=== PATIENT | female | born 1950 | race Hispanic/Latino ===

== ENCOUNTER → 2024-03-02 | Day surgery (SDC) | payer MEDICARE, OTHER ==
[~2024-03-02] MED LIST: ACETAMINOPHEN 1000 MG/100 ML 100 ML IV ONE; ACETAMINOPHEN 1000 MG/100 ML IV PRN; ACETAMINOPHEN PO; ACETAMINOPHEN325 M1 PO; ASPIRIN 325 MG TAB PO SCH; ASPIRIN81 MG PO; AVODART0.5 MG PO; BUSPIRONE HCL10 MG PO; CELECOXIB 100 MG CAP PO SCH; CODEINE PO; DIOVAN160 MG PO; DIPHENHYDRAMINE HCL INJ 50 MG/ML VIAL IV PRN; DOCUSATE SODIU100 MG PO; DOCUSATE SODIUM 100 MG CAP PO PRN; FAMOTIDINE 20 MG/2 ML VIAL IV ONE; FENTANYL CITRATE/PF 100MCG/2 ML INJ ONE; HYDROCODONE/APAP 5MG-325MG TAB PO PRN; HYDROCODONE/APAP 7.5MG-325MG 1 EA TAB PO PRN; ISOSORBIDE MONO30 MG PO; KETOROLAC PO; LEVOCETIRIZINE D5 MG PO; LEVOTHYROXINE50 MCG PO; LIDOCAINE HCL 2% LOCAL INJ 5 ML SDV VIAL INJ ONE; LINZESS145 MCG PO; LIPITOR10 MG PO; MECLIZINE HCL12.5 MG PO; METFORMIN HCL850 MG PO; MINOCYCLINE HCL50 MG PO; MINOXIDIL60 ML TOP; MOMETASONE FURO30 ML TOP; MONTELUKAST SOD10 MG PO; NEURONTIN300 MG PO; NITROFURANTOIN50 MG PO; NITROGLYCERIN0.4 MG SL; OMEPRAZOLE40 MG PO; ONDANSETRON HCL INJ 2MG/ML 2ML 2 MG/ML VIAL IV PRN; ONDANSETRON HCL INJ 2MG/ML 2ML 2 MG/ML VIAL ONE; ONDANSETRON ODT8 MG PO; OXYBUTYNIN CHLOR5 M1 PO; PROBIOTIC & AC1 EACH PO; PROPOFOL IV EMULSION 10 MG/ML 20 ML VIAL ONE; RANOLAZINE ER1000 MG PO; ROPIVACAINE/EPI/CLONIDINE/KET 50 ML SYRINGE INJ ONE; SODIUM CHLORIDE 0.9% 1000ML 1,000 ML IV SCH; TERBINAFINE HC250 MG PO; TIZANIDINE HCL4 MG PO; VIT D3 PO; XVITE TABLET1 EACH PO
[2024-03-02] MEDS: GABAPENTIN 300 MG CAP ONE (09:29)
[2024-03-02] MEDS: LACTATED RINGER'S 1,000 ML ONE (09:29)
[2024-03-02] MEDS: DEXAMETHASONE SOD PHOS 10 MG/1 ML VIAL ONE (09:30)
[2024-03-02] MEDS: CELECOXIB 200 MG CAP ONE (09:30)
[2024-03-02 13:30] VITALS: TEMP 97.1
[2024-03-02 14:50] VITALS: BP 140/63; PULSE 72; RESP 15; O2SAT 96
== END | disposition home health service (06) ==
LOC: OR 07:56
PROVIDERS: ATTEND Specialist
DX: M17.12 Unilateral primary osteoarthritis, left knee (principal); G47.33 Obstructive sleep apnea (adult) (pediatric); J44.9 Chronic obstructive pulmonary disease, unspecified; I50.9 Heart failure, unspecified; E11.9 Type 2 diabetes mellitus without complications; Z99.81 Dependence on supplemental oxygen; Z91.040 Latex allergy status; Z01.812 Encounter for preprocedural laboratory examination; Z79.84 Long term (current) use of oral hypoglycemic drugs; Z79.82 Long term (current) use of aspirin; Z79.899 Other long term (current) drug therapy
CPT/HCPCS: 27447; 71046; 73560; 86850; 86900; 97110; 97116; 97161; C1713 ×2; C1776 ×4; J0131; J0690; J1100; J2003; J2405; J2704; J3010; J7121

== ENCOUNTER 2024-03-28 12:48 | Emergency (ER) | payer MEDICARE ==
[~2024-03-28] VITALS: Ht 149.9 cm; Wt 69.4 kg
[~2024-03-28 12:48] MED LIST changes: -ACETAMINOPHEN 1000 MG/100 ML 100 ML IV ONE; -ACETAMINOPHEN 1000 MG/100 ML IV PRN; -ASPIRIN 325 MG TAB PO SCH; -CELECOXIB 100 MG CAP PO SCH; -DIPHENHYDRAMINE HCL INJ 50 MG/ML VIAL IV PRN; -DOCUSATE SODIUM 100 MG CAP PO PRN; -FAMOTIDINE 20 MG/2 ML VIAL IV ONE; -FENTANYL CITRATE/PF 100MCG/2 ML INJ ONE; -HYDROCODONE/APAP 5MG-325MG TAB PO PRN; -HYDROCODONE/APAP 7.5MG-325MG 1 EA TAB PO PRN; -LIDOCAINE HCL 2% LOCAL INJ 5 ML SDV VIAL INJ ONE; -ONDANSETRON HCL INJ 2MG/ML 2ML 2 MG/ML VIAL IV PRN; -ONDANSETRON HCL INJ 2MG/ML 2ML 2 MG/ML VIAL ONE; -PROPOFOL IV EMULSION 10 MG/ML 20 ML VIAL ONE; -ROPIVACAINE/EPI/CLONIDINE/KET 50 ML SYRINGE INJ ONE; -SODIUM CHLORIDE 0.9% 1000ML 1,000 ML IV SCH
[2024-03-28 13:10] VITALS: PULSE 59; RESP 18; TEMP 97.8
[2024-03-28] MEDS ORDERED: NAPROXEN250 MG PO (15:05)
[2024-03-28 15:10] VITALS: BP 99/68; PULSE 76; RESP 18; O2SAT 100
== END 2024-03-28 15:13 | disposition home or self-care (01) ==
LOC: ER 12:52
DX: M25.562 Pain in left knee (principal); M71.22 Synovial cyst of popliteal space [Baker], left knee; I10 Essential (primary) hypertension; E11.9 Type 2 diabetes mellitus without complications; E78.5 Hyperlipidemia, unspecified; Z96.652 Presence of left artificial knee joint; Z86.73 Personal history of transient ischemic attack (TIA), and cerebral infarction without residual deficits; M19.09 Primary osteoarthritis, other specified site
CPT/HCPCS: 93971; 99283